=== PATIENT | female | born 1950 | race Caucasian/White ===

== ENCOUNTER 2017-10-22 18:25 | Observation (INO) ==
[2017-10-22] MEDS ORDERED: Naloxone 0.4 MG/ML INJ IVP PRN (22:44)
[2017-10-22] MEDS ORDERED: Dextrose Gel 15 GM/37.5 ML TUBE PO PRN ×2 (22:47)
[2017-10-22] MEDS ORDERED: D5% in Water 1,000 ML IVC PRN (22:47)
[2017-10-22] MEDS ORDERED: *HR* Dextrose 50 % in Water (Syg) 50 ML SYRINGE IVP PRN (22:47)
--- NOTE | 2017-10-22 22:55 | Internal Med History&Physical ---
Date of Encounter: 10/23/17 Time of Encounter: 22:51 Internal Medicine - H&P: HPI Chief complaint: Elevated blood pressure Admitted From: Hospital to Hospital Transfer Plans for Post Hospital Care: Home History of present illness: Ms. Thomas is a 67 year old female was sent to [facility] by her PCP for elevated blood pressure. Patient's blood pressure was systolics 220s. Patient reports her blood pressure is usually 150s to 160s systolic. She is treated with metoprolol and lisinopril. She states that since Saturday she has had this numbness sensation around her right upper and lower lip which then had involved to her right cheek and also had fullness in her right hand. These sensations were intermittent and currently have resolved. She denied headache, blurry vision, changes in hearing, changes in swallowing, neck pain, shortness of breath, chest pain, abdominal pain, nausea, vomiting, diarrhea, lower extremity swelling. Patient has history of peripheral neuropathy and reports lower extremity numbness that is chronic. She denies slurred speech, weakness on one side compared to the other, difficulty in coordination, syncope, seizures. She denies missing any doses of her blood pressure medication. At [facility] patient had negative troponin 2, negative CT of the head, and NIHSS 0. She was also given hydralazine which decreases with pressure to systolics 190s. After transfer from [facility] patient's blood pressure is 152/91. Past Med Surg Social Fam HX - Past Medical History Medical history: arthritis, COPD, diabetes, GERD, hypertension, osteoporosis, renal disease, other Additional medical history: palpatations, renal failure stage 3, sleep apnea, dysphagia, DDD, cervical disorders, PUD, neuropathy. Psychiatric history: anxiety, depression - Past Surgical History Surgical History: cholecystectomy Additional surgical history: Bladder tuck - Social History Smoking Status: Current every day smoker Packs per day: 1 / Smokeless Tobacco Status: No Alcohol use: none Drug use: none - Family History Father Living Status: Hx Family Cancer: Yes (lukemia) Mother Living Status: Hx Family Cardiac Disorders: Yes (HTN) Brother Living Status: Hx Family Medical Disorders: Yes (CKD) Internal Medicine - H&P: Meds Aspirin 81 mg PO DAILY 10/22/17 [History] Folic Acid 1 mg PO DAILY 10/22/17 [History] HYDROcodone/Acet 7.5/325 mg PO TID PRN 10/22/17 [History] Linagliptin/Metformin HCl 1,000 mg PO BID 10/22/17 [History] Lisinopril 20 mg PO DAILY 10/22/17 [History] Metoprolol 100 mg PO DAILY 10/22/17 [History] Rosuvastatin 10 mg PO DAILY 10/22/17 [History] Spiriva 1.25 mcg IH BID PRN 10/22/17 [History] Ventolin Hfa 90 mcg IH QID PRN 10/22/17 [History] 3 Allergy/AdvReac Type Severity Reaction Status Date / Time acetaminophen [From Percocet] AdvReac Nausea Verified 10/22/17 21:38 esomeprazole [From Nexium] AdvReac Nausea Verified 10/22/17 21:36 Iodinated Contrast- Oral and AdvReac Dizziness Verified 10/22/17 21:38 IV Dye levofloxacin [From Levaquin] AdvReac Hives Verified 10/22/17 21:36 Oxycodone [From Percocet] AdvReac Nausea Verified 10/22/17 21:38 venlafaxine AdvReac Nausea Verified 10/22/17 22:41 All Systems PM: A 10-system review of systems was performed and is negative for pertinent findings except as documented above in the HPI. Review of systems: Constitutional: Denies fever, chills HEENT: Denies headache, vision changes, neck pain, sore throat, rhinorrhea Heart: Denies chest pain palpitations Lungs: Denies shortness of breath cough Abdomen: Denies abdominal pain nausea vomiting diarrhea Back: Denies back pain Kidney: Denies dysuria, hematuria. Reports frothy urine Skin: Denies rash, lesions Extremities: Denies swelling, pain Neuro: Reports lower extremity numbness, tingling that is chronic - Constitutional Vitals: Temp Pulse Resp BP Pulse Ox 98.5 F 69 16 152/91 97 10/22/17 21:23 10/22/17 21:23 10/22/17 21:23 10/22/17 21:23 10/22/17 21:23 General appearance: Present: A&O X 3 Exam: General: Pleasant without distress HEENT: Head atraumatic, normocephalic, EOMI, PERRL, neck nontender to palpation , absent lymphadenopathy, Moist Mucous Membranes, Heart: Regular rate and rhythm with no murmur Lungs: Clear to auscultation bilaterally Abdomen: Soft nontender, nondistended positive bowel sounds Skin: warm and dry, absent rash Extremities: Absent pedal edema, Neuro: Cranial nerves II through XII intact, UE and LE sensation equal bilaterally, UE and LEstrength 5/5, alert oriented 3, Heel to nguyen intact, finger to nose intact, Gait intact, rhombergs sign negative, b/l plantar reflexes downwards Vascular: Pedal and radial pulses 2 out of 4 - Assessment and plan (1) Hypertensive urgency Current Visit: Yes Status: Acute Assessment and plan: Patient 67-year-old female transfer from [facility] for elevated blood pressure She is found to have a blood pressure systolics 220s by her PCP Along with this she stopped reports having sensation of numbness and tingling around her right upper and lower lip right cheek and fullness in her right hand which are intermittent and currently resolved. CT head negative at [facility] Serum creatinine within normal limits 1.07 Currently her blood pressure is 152/91 Plan: Restart patient's metoprolol and lisinopril and trend blood pressure overnight. Likely patient can be discharged tomorrow. (2) TIA (transient ischemic attack) Current Visit: Yes Status: Suspected Assessment and plan: Patient was suspected to have TIA secondary to her symptoms with numbness and tingling in her right upper and lower lip and cheek However symptoms of TIA usually last less than 24 hours and are not intermittent (patients symptoms lasted 4 days and were intermittent) She does have risk factors for stroke including hypertension, smoking, hyperlipidemia. Patient's NIHSS is 0 we will obtain MRI consider echo, carotid dopplers (3) Obstructive sleep apnea Current Visit: Yes Status: Chronic Assessment and plan: hx of ELDER on bipap order bipap (4) DVT prophylaxis Current Visit: Yes Status: Acute Assessment and plan: heparin SQ (5) Tobacco abuse Current Visit: Yes Status: Acute Assessment and plan: patient has 45 pack year history she was educated on benefits of smoking cessation nicotine patch (6) Type 2 diabetes mellitus Current Visit: Yes Status: Chronic Assessment and plan: hx of non-insulin dependent type II DM patient is on linagliptin/metformin at home unknown A1c will order low dose sliding scale, A1c and diabetic cardiac diet continue statin. She complains of frothy urine which can be sign of nephrotic syndrome. Will get urinalysis. Qualifiers: Diabetes mellitus penitentiary insulin use: without penitentiary use Diabetes mellitus complication status: with neurologic complications Diabetes mellitus complication detail: with autonomic neuropathy Qualified Code(s): E11.43 - Type 2 diabetes mellitus with diabetic autonomic (poly)neuropathy - Time Spent With Patient Total time spent is greater than 50% in coordination of care (as documented) at patient's floor/unit and/or counseling patient:
[2017-10-23] MEDS: *HR* HYDROcodone/Acet 7.5/325 mg TABLET PO PRN ×3 (00:50→20:17)
[2017-10-23 01:31] LABS: Bilirubin,Urine Negative (Negative); Blood,Urine Negative (Negative); Clarity,Urine Clear (Clear); Color,Urine Yellow (Yellow); Glucose,Urine (UA) 100 mg/dL (Normal); Ketones,Urine Negative (Negative); Leukocyte Esterase,Urine Negative (Negative); Nitrite,Urine Negative (Negative); Protein,Urine >=300 mg/dL (Neg-Trace); Specific Gravity,Urine 1.012 (1.010-1.025); Urobilinogen,Urine Normal (Normal)
[2017-10-23 01:54] LABS: Bacteria,Urine Few per hpf (None-Few); RBC,Urine 0-3 per hpf (0-3); Squamous Epithelial Cell,Urine Few per lpf (None-Few); WBC,Urine 0-3 per hpf (0-3)
[2017-10-23] MEDS: *HR* Heparin 5,000 UNIT/ML VIAL SQ SCH ×3 (06:18→20:17)
[2017-10-23 06:59] LABS: Hematocrit 34.6 % (35.3-44.9); Hemoglobin 11.7 g/dL (11.5-15.4); Mean Corpuscular HGB Conc 33.8 g/dL (31.6-35.5); Mean Corpuscular Hemoglobin 30.8 pg (28.0-33.3); Mean Corpuscular Volume 91.1 fL (83.0-100.0); Mean Platelet Volume 10.9 fL (9.4-12.4); Platelet Count 202 K/mcL (140-400)
[2017-10-23 07:05] LABS: INR 1.2; Prothrombin Time 13.4 Seconds (9.4-12.1)
[2017-10-23 07:19] LABS: Estimated Average Glucose 212 mg/dl
[2017-10-23 07:24] LABS: BUN/Creatinine Ratio 22 (6-26); Blood Urea Nitrogen 19 mg/dL (8-23); Calcium 9.1 mg/dL (8.6-10.3); Carbon Dioxide 26 mEq/L (23-29); Chloride 105 mEq/L (98-107); Chol/HDL Ratio 4.2 (0-4.9); Cholesterol 125 mg/dL (< 200); Glucose 175 mg/dL (70-105); HDL Cholesterol 30 mg/dL (40-59); LDL Cholesterol,Calculated 47 mg/dL (0-99); Osmolality,Calculated 293 (280-300); Potassium 4.1 mEq/L (3.5-5.1); Sodium 138 mEq/L (136-145); Triglycerides 241 mg/dL (< 150); eGFR For Non-African Americans > 60 (> 60)
[2017-10-23] MEDS ORDERED: Aspirin 81 MG TAB.CHEW PO SCH (09:00)
[2017-10-23] MEDS ORDERED: Lisinopril 20 MG TABLET PO SCH (09:00)
[2017-10-23] MEDS: Nicotine 14 MG PATCH.TD24 TD SCH (09:37)
[2017-10-23] MEDS: Metoprolol 100 MG TABLET PO SCH (09:37)
[2017-10-23] MEDS: Insulin LISPRO 300 UNITS/3 ML VIAL SQ SCH ×3 (09:38→17:07)
--- NOTE | 2017-10-23 14:28 | Neurology - Consult Note ---
<Gianna Plata P - Last Filed: 10/23/17 15:25> Date of Encounter: 10/23/17 Time of Encounter: 02:00 Assessment and Plan (1) CVA (cerebral vascular accident) Current Visit: Yes Status: Acute Patient might have ischaemic stroke , infarct at thalamic territory explains her sensory symptoms art right side. She has numbness and tingling in lips, tongue, right side of checks and arm for last 4 days She is Known case of HTN and DM under medication , smoker age > 65 , female , hyperlipidemia , all risk factor are predisposing to CVA. MRI head report: A tiny acute infarction in left thalamus, likely in the left CASING RUNNER territory.Minimal parenchymal volume loss.,Minimal chronic microvascular disease. Waiting Echo and carotid Doppler report On aspirin , Lipid lowering and anti hypertensive. Occupational and Physical therapy involved Plan: add Plavix 75 mg stat and OD We will review after all reports are back Qualifiers: CVA mechanism: unspecified Qualified Code(s): I63.9 - Cerebral infarction, unspecified History of Present Illness Chief complaint: Elevated BP and numbness and tingling in lips, checks and right hand HPI: Ms. Thomas is a 67 year old female was admitted in [facility] for elevated Blood pressure and feeling of numbness and tingling in lips, checks and right arm for a couple of days . This patient is known case of , DM under insulin treatment, renal failure, essential HTN under medication who also had elevated BP: 220 sbp .Patient states that she usually has elevated SBP 150-160 . The patient states that she developed Numbness and tingling in her upper and lower lips,right check and the moved to right arm since last Saturday. She stressed that the numbness in right check is the same as before , but right hand , tongue and lip is gradually better.She denied any dizziness, LOC or any focal neurological deficit, dysphonia, dysphagia, neck pain, headache, blurry vision, hearing loss , trouble swallowing, nausea, vomiting, lower extremity weakness or swelling. Patient has history of lower extremity numbness on and off for long time. She also denies slurred speech, difficulty in coordination, syncope , seizures. She denies missing any doses of her blood pressure medication. She denies any palpitation, orthopnea, PND, leg swelling, irregular pulse, thyroid issue. Patient MRI head Acute infarction in left thalamus left CASING RUNNER territory Minimal parenchymal volume loss Chronic microvascular disease ECHO : awaited Carotid Doppler : waited Vitals:BP 129/76 , sat 94% , pul 62, Tem 98.2 Na 138, K 4.1, PT 13.4, INR 1.2 Glucose 175, BUN 19, creatinine 0.85 She is on Aspirin 81 mg, Atorvastatine 40 mg ,metoprolol 100 mg daily Past Med Surg Social Fam HX - Past Medical History Medical history: arthritis, COPD, diabetes, GERD, hypertension, osteoporosis, renal disease, other Additional medical history: palpatations, renal failure stage 3, sleep apnea, dysphagia, DDD, cervical disorders, PUD, neuropathy. Psychiatric history: anxiety, depression - Past Surgical History Surgical History: cholecystectomy Additional surgical history: Bladder tuck - Social History Smoking Status: Current every day smoker Packs per day: 1 1/2 Smokeless Tobacco Status: No Alcohol use: none Drug use: none - Family History Father Living Status: Hx Family Cancer: Yes (lukemia) Mother Living Status: Hx Family Cardiac Disorders: Yes (HTN) Brother Living Status: Hx Family Medical Disorders: Yes (CKD) Medications and Allergies Albuterol Sulfate [Ventolin Hfa] 2 puff IH Q6H PRN 10/22/17 [History] Aspirin [Lo-Dose Aspirin EC] 81 mg PO DAILY 10/22/17 [History] HYDROcodone/Acet 7.5/325 mg [[place] 7.5-325 mg] 1 tab PO TID PRN 10/22/17 [ History] Metformin HCl [Glucophage] 1,000 mg PO BID 10/22/17 [History] Metoprolol [Lopressor] 100 mg PO DAILY 10/22/17 [History] RX: Lisinopril [Zestril] 20 mg PO DAILY 10/22/17 [History] Rosuvastatin Calcium [Crestor] 10 mg PO HS 10/22/17 [History] Tiotropium [facility] [Spiriva Respimat] 1 puff IH BID 10/22/17 [History] Cholecalciferol (D-3) [Vitamin D] 2,000 unit PO DAILY 10/23/17 [History] Cyanocobalamin/FA/Pyridoxine [Folbic Tablet] 1 tab PO BID 10/23/17 [History] FLUoxetine HCl [PROzac] 20 mg PO DAILY 10/23/17 [History] Insulin Glargine,Hum.rec.anlog [Lantus Solostar] 5 - 30 unit SQ HS 10/23/17 [ History] 3 Allergy/AdvReac Type Severity Reaction Status Date / Time acetaminophen [From Percocet] AdvReac Nausea Verified 10/22/17 21:38 esomeprazole [From Nexium] AdvReac Nausea Verified 10/22/17 21:36 Iodinated Contrast- Oral and AdvReac Dizziness Verified 10/22/17 21:38 IV Dye levofloxacin [From Levaquin] AdvReac Hives Verified 10/22/17 21:36 Oxycodone [From Percocet] AdvReac Nausea Verified 10/22/17 21:38 venlafaxine AdvReac Nausea Verified 10/22/17 22:41 All Systems: The remainder of the systems were reviewed and are negative Physical Examination - Vital Signs Vital Signs: Initial Vital Signs Temp Pulse Resp BP Pulse Ox 98.5 F 69 16 152/91 97 10/22/17 21:23 10/22/17 21:23 10/22/17 21:23 10/22/17 21:23 10/22/17 21:23 - Exam Exam: General: Pleasant without distress,alert oriented 3 HEENT: Head atraumatic, , neck nontender to palpation, no lymphadenopathy, Moist Mucous Membranes, Heart: Regular rate and rhythm with no murmur Lungs: Clear to auscultation bilaterally Skin: warm and dry, absent rash Extremities: Absent pedal edema, calf swelling Neuro: Cranial nerves II through XII intact, sensation intact bilaterally, extremities strength 5/5, rhombergs sign negative, b/l plantar reflexes downwards 50% loss of sensation in right side of checks, lip and tongue . Psy: normal mood . Oriented TPP, intact HMF Results - Laboratory Findings CBC and BMP: 10/23/17 06:16 10/23/17 06:16 Abnormal lab findings: Abnormal lab results RBC 3.80 M/mcL (3.82-4.97) L 10/23/17 06:16 Hct 34.6 % (35.3-44.9) L 10/23/17 06:16 PT 13.4 Seconds (9.4-12.1) H 10/23/17 06:16 Glucose 175 mg/dL (70-105) H 10/23/17 06:16 POC Glucose 199 mg/dL (70-99) H 10/22/17 23:13 Hemoglobin A1c 9.0 % (-5.6) H 10/23/17 06:16 Triglycerides 241 mg/dL (< 150) H 10/23/17 06:16 VLDL Cholesterol, Calc 48 mg/dL (< 31) H 10/23/17 06:16 HDL Cholesterol 30 mg/dL (40-59) L 10/23/17 06:16 Urine Protein >=300 mg/dL (Neg-Trace) H 10/23/17 00:55 Urine Glucose (UA) 100 mg/dL (Normal) H 10/23/17 00:55 Consult Discharge Plan - Plan Referrals: Mook Juarez MD [Primary Care Provider] - <Justin Prather I - Last Filed: 10/23/17 15:42> Date of Encounter: 10/23/17 Assessment and Plan (1) CVA (cerebral vascular accident) Current Visit: Yes Status: Acute Pt was seen and examined, my medical decision was reviewed with the Resident Physician, I agree with the documented findings, disposition and treatment plas as described except to the extent set forth below Patient was admitted WITH significantly elevated blood pressure, noted to have a acute small left lacunar thalamic infarct without significant focal motor deficit except sensory symptoms on the right face and arm likely related to this thalamic infarct. Patient is getting his stroke workup including echo and carotid though it is likely a small vessel ischemia related to elevated blood pressure at the moment I would recommend controlling the blood pressure keep it is stable range should not be allowed to fluctuating blood pressure. At the same time suggest changing antiplatelet therapy to Plavix as she is been on aspirin and discontinue aspirin after 1 days of overlap Patient already getting evaluated by physical therapy do not think that she would require any long-term rehabilitation If she is a stable okay to discharge after workup is completed including echo and carotid and providing her blood pressure remains stable Justin Prather MD Qualifiers: CVA mechanism: unspecified Qualified Code(s): I63.9 - Cerebral infarction, unspecified History of Present Illness HPI: Ms. Thomas is a 67 year old female All Systems: The remainder of the systems were reviewed and are negative Physical Examination - Vital Signs Vital Signs: Initial Vital Signs Temp Pulse Resp BP Pulse Ox 98.5 F 69 16 152/91 97 10/22/17 21:23 10/22/17 21:23 10/22/17 21:23 10/22/17 21:23 10/22/17 21:23 Results - Laboratory Findings CBC and BMP: 10/23/17 06:16 10/23/17 06:16 Abnormal lab findings: Abnormal lab results RBC 3.80 M/mcL (3.82-4.97) L 10/23/17 06:16 Hct 34.6 % (35.3-44.9) L 10/23/17 06:16 PT 13.4 Seconds (9.4-12.1) H 10/23/17 06:16 Glucose 175 mg/dL (70-105) H 10/23/17 06:16 POC Glucose 199 mg/dL (70-99) H 10/22/17 23:13 Hemoglobin A1c 9.0 % (-5.6) H 10/23/17 06:16 Triglycerides 241 mg/dL (< 150) H 10/23/17 06:16 VLDL Cholesterol, Calc 48 mg/dL (< 31) H 10/23/17 06:16 HDL Cholesterol 30 mg/dL (40-59) L 10/23/17 06:16 Urine Protein >=300 mg/dL (Neg-Trace) H 10/23/17 00:55 Urine Glucose (UA) 100 mg/dL (Normal) H 10/23/17 00:55
--- NOTE | 2017-10-23 14:42 | Internal Med Progress Note ---
<Delbert Garcia - Last Filed: 10/23/17 14:39> Hospitalist Progress Note - Encounter Date of Encounter: 10/23/17 Time of Encounter: 14:39 - Subjective Interval History: Patient was admitted last night due to hypertensive urgency and suspected TIA. Patient still complains of some numbness and tingling in her right face and right hand this morning. She denies any confusion or other focal deficits. She denies chest pain, shortness of breath. No acute events overnight. - Exam Vitals: Temp Pulse Resp BP Pulse Ox 98.2 F 62 15 129/76 94 10/23/17 11:42 10/23/17 11:42 10/23/17 11:42 10/23/17 11:42 10/23/17 11:42 Exam: Patient in no acute distress, alert and oriented 3 Heart in regular rate and rhythm, no murmur, rub, gallop Lungs clear to auscultation, no wheeze, rales, rhonchi Abdomen soft and nontender, bowel sounds normal Cranial nerves II through XII intact Slightly diminished sensation in the right face and right hand Upper and lower muscle extremity strength equal bilaterally Head normocephalic and atraumatic No carotid bruit or lower extremity tenderness, Homans signs negative bilaterally - Assessment and Plan (1) CVA (cerebral vascular accident) Current Visit: Yes Status: Acute Assessment and Plan: TIA was suspected at admission, CT head was negative, MRI brain was ordered MRI brain this morning yielded small acute infarction in the left thalamus, likely in RISK ADVISOR territory This could be secondary to hypertensive urgency the patient presented with as well as her other risk factors of smoking, diabetes and hyperlipidemia On exam patient had minimal residual focal neural deficits consistent with presentation at admission, no new focal neural deficits Patient is already on aspirin regimen at home and continues to be on aspirin here, atorvastatin increased to high dose 40 mg Neurology consulted, physical therapy and occupational therapy consulted Carotid ultrasound, echocardiogram, lower extremity Dopplers ordered and results pending Patient is far out of the window for consideration of tPA Will continue current management and await recommendations of consultations (2) Hypertensive urgency Current Visit: Yes Status: Acute Assessment and Plan: Patient presented for hypertensive urgency, however she was then found to have suspicion for TIA She is now confirmed to have CVA via findings on MRI brain Lisinopril has been held so as not to lower blood pressure too quickly and reduce blood flow to brain Metoprolol is still continued, blood pressure currently stable We will continue to monitor DVT Prophylaxis: Heparin subcutaneous - Time Spent with Patient Total time spent is greater than 50% in coordination of care (as documented) at patient's floor/unit and/or counseling patient: Plan of Care Discussed with: patient Internal Medicine: Result - Labs CBC & Chem 7: 10/23/17 06:16 10/23/17 06:16 Labs: Short CBC 10/23/17 Range/Units 06:16 WBC 7.1 (4.3-11.1) K/mcL Hgb 11.7 (11.5-15.4) g/dL Hct 34.6 L (35.3-44.9) % Plt Count 202 (140-400) K/mcL BMP 10/23/17 06:16 Sodium 138 Potassium 4.1 Chloride 105 Carbon Dioxide 26 BUN 19 Creatinine 0.85 Glucose 175 H Calcium 9.1 Urine 10/23/17 Range/Units 00:55 Urine Color Yellow (Yellow) Urine Clarity Clear (Clear) Urine pH 7.0 (5.0-8.0) pH Units Ur Specific [place] 1.012 (1.010-1.025) Urine Protein >=300 H (Neg-Trace) mg/dL Urine Glucose (UA) 100 H (Normal) mg/dL - ABG Interpretation ABG results: PT/INR, D-dimer PT 13.4 Seconds (9.4-12.1) H 10/23/17 06:16 - Impressions Impressions Brain MRI 10/23/17 01:16 IMPRESSION: A tiny acute infarction in left thalamus, likely in the left RISK ADVISOR territory. Minimal parenchymal volume loss. Minimal chronic microvascular disease. D/ / Babatunde Rhoades MD / Babatunde Rhoades MD Interpreting Provider: Babatunde Rhoades MD Consult Discharge Plan - Plan Referrals: Mook Juarez MD [Primary Care Provider] - <Phil Winters - Last Filed: 10/23/17 15:19> Hospitalist Progress Note - Encounter Date of Encounter: 10/23/17 - Exam Vitals: Temp Pulse Resp BP Pulse Ox 98.2 F 62 15 129/76 94 10/23/17 11:42 10/23/17 11:42 10/23/17 11:42 10/23/17 11:42 10/23/17 11:42 - Assessment and Plan (1) Hypertensive urgency Current Visit: Yes Status: Acute (2) TIA (transient ischemic attack) Current Visit: Yes Status: Suspected (3) DVT prophylaxis Current Visit: Yes Status: Acute (4) Obstructive sleep apnea Current Visit: Yes Status: Chronic (5) Tobacco abuse Current Visit: Yes Status: Acute (6) Type 2 diabetes mellitus Current Visit: Yes Status: Chronic - Time Spent with Patient Total time spent is greater than 50% in coordination of care (as documented) at patient's floor/unit and/or counseling patient: Internal Medicine: Result - Labs CBC & Chem 7: 10/23/17 06:16 10/23/17 06:16 Labs: Short CBC 10/23/17 Range/Units 06:16 WBC 7.1 (4.3-11.1) K/mcL Hgb 11.7 (11.5-15.4) g/dL Hct 34.6 L (35.3-44.9) % Plt Count 202 (140-400) K/mcL BMP 10/23/17 06:16 Sodium 138 Potassium 4.1 Chloride 105 Carbon Dioxide 26 BUN 19 Creatinine 0.85 Glucose 175 H Calcium 9.1 Urine 10/23/17 Range/Units 00:55 Urine Color Yellow (Yellow) Urine Clarity Clear (Clear) Urine pH 7.0 (5.0-8.0) pH Units Ur Specific [place] 1.012 (1.010-1.025) Urine Protein >=300 H (Neg-Trace) mg/dL Urine Glucose (UA) 100 H (Normal) mg/dL - ABG Interpretation ABG results: PT/INR, D-dimer PT 13.4 Seconds (9.4-12.1) H 10/23/17 06:16 - Impressions Impressions Brain MRI 10/23/17 01:16 IMPRESSION: A tiny acute infarction in left thalamus, likely in the left RISK ADVISOR territory. Minimal parenchymal volume loss. Minimal chronic microvascular disease. D/ / Babatunde Rhoades MD / Babatunde Rhoades MD Interpreting Provider: Babatunde Rhoades MD - Attending Attestation I have seen and examined this patient independently. I have discussed with resident physician Dr. Garcia regarding the management plan. Agree with the documentation. <Delbert Garcia - Last Filed: 10/23/17 14:39> (1) CVA (cerebral vascular accident) Qualifiers: CVA mechanism: unspecified Qualified Code(s): I63.9 - Cerebral infarction, unspecified <Phil Winters - Last Filed: 10/23/17 15:19> (6) Type 2 diabetes mellitus Qualifiers: Qualified Code(s): E11.43 - Type 2 diabetes mellitus with diabetic autonomic ( poly)neuropathy
[2017-10-23] MEDS ORDERED: MOM Conc 10 ML UD.LIQ PO PRN (19:54)
[2017-10-23] MEDS ORDERED: Insulin LISPRO 300 UNITS/3 ML VIAL SQ SCH (21:00)
[2017-10-24] MEDS: *HR* HYDROcodone/Acet 7.5/325 mg TABLET PO PRN (04:11)
[2017-10-24 04:49] LABS: Basophils # 0.1 K/mcL (0.0-0.2); Basophils % 0.8 %; Eosinophils # 0.3 K/mcL (0.0-0.6); Eosinophils % 5.3 %; Hematocrit 36.3 % (35.3-44.9); Hemoglobin 12.5 g/dL (11.5-15.4); Immature Granulocytes % 0.3 % (0-4); Lymphocytes # 2.4 K/mcL (0.6-4.6); Lymphocytes % 38.2 %; Mean Corpuscular HGB Conc 34.4 g/dL (31.6-35.5); Mean Corpuscular Hemoglobin 30.9 pg (28.0-33.3); Mean Corpuscular Volume 89.9 fL (83.0-100.0); Mean Platelet Volume 10.6 fL (9.4-12.4); Monocytes # 0.5 K/mcL (0.0-1.3); Monocytes % 7.7 %; Platelet Count 218 K/mcL (140-400); Red Blood Count 4.04 M/mcL (3.82-4.97); Segmented Neutrophils % 47.7 %
[2017-10-24 05:08] LABS: BUN/Creatinine Ratio 26 (6-26); Blood Urea Nitrogen 23 mg/dL (8-23); Calcium 9.2 mg/dL (8.6-10.3); Carbon Dioxide 27 mEq/L (23-29); Chloride 102 mEq/L (98-107); Glucose 179 mg/dL (70-105); Osmolality,Calculated 290 (280-300); Potassium 4.3 mEq/L (3.5-5.1); Sodium 136 mEq/L (136-145); eGFR For Non-African Americans > 60 (> 60)
[2017-10-24] MEDS: *HR* Heparin 5,000 UNIT/ML VIAL SQ SCH (05:46)
--- NOTE | 2017-10-24 09:03 | Discharge Summary ---
<Delbert Garcia Marty - Last Filed: 10/24/17 10:42> - NOTES TO OUTPATIENT PROVIDER Notes to Outpatient Provider: Patient was admitted and treated for hypertensive urgency MRI brain found acute infarct. Echocardiogram, carotid ultrasound, lower extremity Doppler oral negative for acute process. Neurology was consulted and recommended Plavix and high-dose atorvastatin. Date of Encounter: 10/24/17 Time of Encounter: 09:02 - Discharge Diagnosis (1) CVA (cerebral vascular accident) Priority: Primary Status: Acute Assessment and Plan: Patient presented for hypertensive urgency but also had right-sided facial and hand numbness CT head is negative for MRI brain was performed which found acute infarct in the right thalamus likely REGIONAL RECRUITER region Patient was already on aspirin and was out of the window for TPA Neurology was consulted who recommended Plavix, high-dose atorvastatin was also started Patient will be discharged on high-dose atorvastatin and Plavix along with other home medications She still has the same right-sided focal deficits that she presented with however she is not demonstrating any weakness or altered mental status I expect these symptoms to resolve with time She is currently clinically stable for discharge Qualifiers: CVA mechanism: unspecified Qualified Code(s): I63.9 - Cerebral infarction, unspecified (2) Hypertensive urgency Priority: Secondary Status: Resolved Assessment and Plan: Patient was sent from primary care provider for hypertensive urgency She was treated here and her blood pressure was stabilized She was then found to have an acute infarction and so her lisinopril was held for 48 hours so as not to lower the blood pressure in the presence of stroke Her blood pressure has been stable and she is now out of the 48 hour window in her blood pressure can be controlled more assertively She will be sent home on her usual home blood pressure medications, with close follow up with her primary care provider Patient is currently clinically stable for discharge Hospital course: Ms. Thomas is a 67 year old female with a past medical history of arthritis, COPD, diabetes, GERD, hypertension, osteoporosis, renal disease who was sent to the emergency department by her primary care provider for elevated blood pressure. Her blood pressure was found to be in the 220s systolic. She was also found to have numbness of the right face and right hand. She was admitted for hypertensive urgency and suspected TIA. The rest of her review of systems was negative at that time. She was given hydralazine and head CT. Her blood pressure lowered appropriately to [address] was negative. However due to her continued right facial and hand numbness she was sent for MRI of the brain. The next day her MRI showed an acute infarct of the right thalamus in the region attributed to the right [employer]ITER. She was already on aspirin and was out of the time window for TPA, her lisinopril was held so as not to lower her blood pressure precipitously in the acute phase after a stroke. She was started on high-dose atorvastatin and neurology was consulted. Echocardiogram, carotid ultrasound, and lower extremity Dopplers were ordered. Neurology agreed with the diagnosis and recommended initiating Plavix continuing aspirin and high-dose atorvastatin. The patient continued to have right facial and hand numbness but did not develop any weakness or other focal neuro deficits or altered mental status. Echocardiogram, carotid ultrasound, lower extremity Dopplers were all negative for acute thrombosis, stenotic plaque , or acute process. Her blood pressure remained stable and at the time of discharge is in a stable clinical disposition. She will be discharged with Plavix, high-dose statin, aspirin and the rest of her home medications with an appointment for close follow-up with her primary care provider. Discharge discussed with: patient Time spent discussing smoking cessation with patient: 3 to 10 minutes - Time Spent with Patient Total time spent providing and/or coordinating discharge services: - Discharge Medications Prescriptions: Atorvastatin [Lipitor] 40 mg PO HS 30 Days #30 tablet Clopidogrel [Plavix] 75 mg PO DAILY 30 Days #30 tablet Home Medications: Albuterol Sulfate [Ventolin Hfa] 2 puff IH Q6H PRN 10/22/17 [History] HYDROcodone/Acet 7.5/325 mg [[place] 7.5-325 mg] 1 tab PO TID PRN 10/22/17 [ History] Lisinopril [Zestril] 20 mg PO DAILY 10/22/17 [History] Metformin HCl [Glucophage] 1,000 mg PO BID 10/22/17 [History] Metoprolol [Lopressor] 100 mg PO DAILY 10/22/17 [History] Tiotropium [place] [Spiriva Respimat] 1 puff IH BID 10/22/17 [History] Cholecalciferol (D-3) [Vitamin D] 2,000 unit PO DAILY 10/23/17 [History] Cyanocobalamin/FA/Pyridoxine [Folbic Tablet] 1 tab PO BID 10/23/17 [History] FLUoxetine HCl [Prozac] 20 mg PO DAILY 10/23/17 [History] Insulin Glargine,Hum.rec.anlog [Lantus Solostar] 5 - 30 unit SQ HS 10/23/17 [ History] Atorvastatin [Lipitor] 40 mg PO HS 30 Days #30 tablet 10/24/17 [Rx] Clopidogrel [Plavix] 75 mg PO DAILY 30 Days #30 tablet 10/24/17 [Rx] Allergies/Adverse Reactions: 3 Allergy/AdvReac Type Severity Reaction Status Date / Time acetaminophen [From Percocet] AdvReac Nausea Verified 10/22/17 21:38 esomeprazole [From Nexium] AdvReac Nausea Verified 10/22/17 21:36 Iodinated Contrast- Oral and AdvReac Dizziness Verified 10/22/17 21:38 IV Dye levofloxacin [From Levaquin] AdvReac Hives Verified 10/22/17 21:36 Oxycodone [From Percocet] AdvReac Nausea Verified 10/22/17 21:38 venlafaxine AdvReac Nausea Verified 10/22/17 22:41 Date of admission: 10/22/17 20:49 Primary care physician: Mook Juarez MD Consults: 10/23/17 10:34 Consult to Neurology [CONS] Routine Consulting Provider: [facility] Reason for Consult: acute cerebral infarct Call Completed: No Consult to Occupational Therapy [CONS] Routine Comment: Evaluate, develop and implement POC Reason for Consult: acute cerebral infarct Does patient have active BEDREST order?: No Is patient medically & hemodynamically stable?: Yes Patient assessed for mobility or mobilized this visit?: No Consult to Physical Therapy [CONS] Routine Comment: Evaluate, develop and implement POC Reason for Consult: acute cerebral infarct Does patient have active BEDREST order?: No Is patient medically & hemodynamically stable?: Yes Patient assessed for mobility or mobilized this visit?: No Discharging clinician: Delbert Garcia Anticipated date of discharge: 10/24/17 - Constitutional Vitals: Temp Pulse Resp BP Pulse Ox 98.0 F 64 16 159/83 95 10/24/17 06:40 10/24/17 06:40 10/24/17 06:40 10/24/17 06:40 10/24/17 06:40 General appearance: Present: A&O X 3 Exam: Patient in no acute distress, alert and oriented 3 Heart in regular rate and rhythm, no murmur, rub, gallop Lungs clear to auscultation, no wheeze, rales, rhonchi Abdomen soft and nontender, bowel sounds normal Cranial nerves II through XII intact Slightly diminished sensation in the right face and right hand Upper and lower muscle extremity strength equal bilaterally Head normocephalic and atraumatic No carotid bruit or lower extremity tenderness, Homans signs negative bilaterally - Patient Status Disposition: Home Health Service Functional capacity at discharge: independent ambulation Overall status at discharge: patient is progressing back to baseline - Discharge Instructions Follow Up With: Mook Juarez MD [Primary Care Provider] - - Diet and Activity Activity: resume usual activities as tolerated Diet: diabetic diet, low salt diet <Phil Winters - Last Filed: 10/24/17 12:03> Date of Encounter: 10/24/17 - Discharge Diagnosis (1) Hypertensive urgency Status: Resolved (2) TIA (transient ischemic attack) Status: Suspected (3) DVT prophylaxis Status: Acute (4) Obstructive sleep apnea Status: Chronic (5) Tobacco abuse Status: Acute (6) Type 2 diabetes mellitus Status: Chronic Qualifiers: Diabetes mellitus senior living insulin use: without long term care administrator use Diabetes mellitus complication status: with neurologic complications Diabetes mellitus complication detail: with autonomic neuropathy Qualified Code(s): E11.43 - Type 2 diabetes mellitus with diabetic autonomic (poly)neuropathy Hospital course: Ms. Thomas is a 67 year old female - Time Spent with Patient Total time spent providing and/or coordinating discharge services: Date of admission: 10/22/17 20:49 Primary care physician: Mook Juarez MD Consults: 10/23/17 10:34 Consult to Neurology [CONS] Routine Consulting Provider: [facility] Reason for Consult: acute cerebral infarct Call Completed: No Consult to Occupational Therapy [CONS] Routine Comment: Evaluate, develop and implement POC Reason for Consult: acute cerebral infarct Does patient have active BEDREST order?: No Is patient medically & hemodynamically stable?: Yes Patient assessed for mobility or mobilized this visit?: No Consult to Physical Therapy [CONS] Routine Comment: Evaluate, develop and implement POC Reason for Consult: acute cerebral infarct Does patient have active BEDREST order?: No Is patient medically & hemodynamically stable?: Yes Patient assessed for mobility or mobilized this visit?: No - Constitutional Vitals: Temp Pulse Resp BP Pulse Ox 98.0 F 76 15 180/84 96 10/24/17 10:49 10/24/17 10:49 10/24/17 10:49 10/24/17 10:49 10/24/17 10:49 - Patient Status Functional capacity at discharge: independent ambulation Overall status at discharge: patient is progressing back to baseline - Diet and Activity Activity: resume usual activities as tolerated Diet: diabetic diet, low salt diet - Attending Attestation I have seen and examined this pt independently. I have discussed with resident physician Dr. Garcia regarding the discharge and follow up plan. Agree with the documentation. Addendum entered and electronically signed by Delbert Garcia 10/24/17 11:22 : Discussed with neurology who agreed with discharge to home. Addendum entered and electronically signed by Delbert Garcia 10/24/17 11:40 : Discharge to home with home health
[2017-10-24] MEDS: Nicotine 14 MG PATCH.TD24 TD SCH (10:01)
[2017-10-24] MEDS: Insulin LISPRO 300 UNITS/3 ML VIAL SQ SCH (10:02)
[2017-10-24] MEDS: Metoprolol 100 MG TABLET PO SCH (10:02)
[2017-10-24 10:50] VITALS: BP 180/84
--- NOTE | 2017-10-24 11:44 | Physician Discharge Referral ---
Home Health/Hosp Referral Info Transfer to: Home Health Attending Provider: Singh Provider in Charge Post Discharge: PCP - Diagnosis (1) CVA (cerebral vascular accident) Priority: Primary Status: Acute (2) Hypertensive urgency Priority: Secondary Status: Resolved - Respiratory Orders None Smoking Cessation: Smoking cessation has been advised. For more information, call the [place] Tobacco Quit Line at 3-951-TKZM-NOW. - Diet/Nutrition Diet/Nutrition Orders: Renal, No Concentrated Sweets - Activity Activity Orders: Up ad yaw - Services Needed Following services are medically necessary services: Home Health Aide - Transfer Medications Prescriptions: Atorvastatin [Lipitor] 40 mg PO HS 30 Days #30 tablet Clopidogrel [Plavix] 75 mg PO DAILY 30 Days #30 tablet Home Medications: Albuterol Sulfate [Ventolin Hfa] 2 puff IH Q6H PRN 10/22/17 [History] HYDROcodone/Acet 7.5/325 mg [[place] 7.5-325 mg] 1 tab PO TID PRN 10/22/17 [ History] Lisinopril [Zestril] 20 mg PO DAILY 10/22/17 [History] Metformin HCl [Glucophage] 1,000 mg PO BID 10/22/17 [History] Metoprolol [Lopressor] 100 mg PO DAILY 10/22/17 [History] Tiotropium [place] [Spiriva Respimat] 1 puff IH BID 10/22/17 [History] Cholecalciferol (D-3) [Vitamin D] 2,000 unit PO DAILY 10/23/17 [History] Cyanocobalamin/FA/Pyridoxine [Folbic Tablet] 1 tab PO BID 10/23/17 [History] FLUoxetine HCl [Prozac] 20 mg PO DAILY 10/23/17 [History] Insulin Glargine,Hum.rec.anlog [Lantus Solostar] 5 - 30 unit SQ HS 10/23/17 [ History] Atorvastatin [Lipitor] 40 mg PO HS 30 Days #30 tablet 10/24/17 [Rx] Clopidogrel [Plavix] 75 mg PO DAILY 30 Days #30 tablet 10/24/17 [Rx] Allergies/Adverse Reactions: 3 Allergy/AdvReac Type Severity Reaction Status Date / Time acetaminophen [From Percocet] AdvReac Nausea Verified 10/22/17 21:38 esomeprazole [From Nexium] AdvReac Nausea Verified 10/22/17 21:36 Iodinated Contrast- Oral and AdvReac Dizziness Verified 10/22/17 21:38 IV Dye levofloxacin [From Levaquin] AdvReac Hives Verified 10/22/17 21:36 Oxycodone [From Percocet] AdvReac Nausea Verified 10/22/17 21:38 venlafaxine AdvReac Nausea Verified 10/22/17 22:41 Certification: Further, I certify that my clinical findings support that this patient is homebound (i.e. absences from home require considerable and taxing effort and are for medical reasons or zoroastrian services or infrequently or short duration when for other reasons) because: Patient had a stroke and requires assistance Homebound Reason: Leaving home requires considerable and taxing effort due to condition Attestation: My signature below is to certify that this patient is under my care and that I, or nurse practitioner, or a physician's assistant warehouse manager working with me, has a face-to -face encounter with this patient.
== END 2017-10-24 12:30 | disposition home health service (06) ==
LOC: 3BNU
PROVIDERS: ADMIT Student in an Organized Health Care Education/Training Program; ATTEND Student in an Organized Health Care Education/Training Program